=== PATIENT | female | born 1985 | race Hispanic/Latino ===

== ENCOUNTER 2025-08-30 19:33 | Emergency (ER) | payer MEDICAID ==
[~2025-08-30] VITALS: Ht 154.9 cm; Wt 72.6 kg
[2025-08-30 19:35] VITALS: BP 121/76; PULSE 73; RESP 18; TEMP 97.9
[2025-08-30] MEDS ORDERED: ISOP30DR11 OT (20:26)
--- NOTE | 2025-08-30 20:27 | ERN ---
General Chief Complaint: Earache Stated Complaint: RT EAR PAIN, BLEEDING Time Seen by MD: 19:35 Time Seen by Midlevel: 19:35 Source: patient History of Present Illness Initial Comments Presents to the ER for evaluation of right ear pain/pressure Allergies: Coded Allergies: No Known Allergies (Unverified Allergy, Unknown, 08/30/25) Past Medical History Past Medical History: No Pertinent History Past Surgical History: None ROS Dictation CONSTITUTIONAL: Negative except for HPI HEAD/FACE: Negative except for HPI EENT: Negative except for HPI RESPIRATORY: Negative except for HPI GASTROINTESTINAL/ABDOMINAL: Negative except for HPI GENITOURINARY: Negative except for HPI MUSCULOSKELETAL: Negative except for HPI INTEGUMENTARY: Negative except for HPI NEUROLOGICAL/PSYCH: Negative except for HPI HEMATOLOGIC/LYMPHATIC: Negative except for HPI All Systems Negative, Except as noted above. 13 point review of systems assessed and all negative except for above. Physical Exam Physical Exam Dictation PHYSICAL EXAM: GENERAL: alert,, awake oriented x 3 HEENT: Right cerumen impaction NECK: Supple, no JVD, trachea midline LUNGS: Clear breath sounds bilaterally. No wheezes HEART: Regular rate and rhythm. Normal S1 and S2, without murmurs ABD: Abdomen soft, nontender. Bowel sounds present EXT: No clubbing or cyanosis, NEURO: Alert and oriented to person, follows commands MDM MDM: Differential diagnosis: Cerumen impaction, otitis media, otitis externa There are no social concerns with this patient. Prescription drug management Prescriptions will include: Debrox Medical management and examination interpretation discussions were had by me with other qualified healthcare professionals as indicated for the patient's care. ED Course Vital Signs Date Time Temp Pulse Resp B/P (MAP) Pulse Ox O2 Delivery O2 Flow Rate FiO2 08/30/25 19:35 97.9 73 18 121/76 99 Room Air DX & DISP Disposition: Discharge Departure Impression: Primary Impression: Impacted cerumen, right ear Condition: Stable Scripts Isopropyl Alcohol in Glycerin (Debrox Swimmer's Ear Drop) 95 %-5 % Drops 2 DROP OT BID for 7 Days, #30 ML Prov: LIOR MARES PAC 08/30/25 Referrals: NONE (PCP) Time of Disposition: 20:25 I have reviewed the case, and I agree with, Diagnosis and Plan I performed the substantive portion of the visit. I have reviewed and personally made and approve the management plan that is documented in the note by myself or the REBECCA. I acknowledge for responsibility for the patient's management plan. LIOR MARES PAC Aug 30, 2025 20:27
--- NOTE | 2025-08-30 20:36 | NUR ---
PATIENT READY FOR DISCHARGE, NO ANSWER IN LOBBY WHEN CALLED.
--- NOTE | 2025-08-30 20:42 | NUR ---
PATIENT NOT IN LOBBY WHEN CALLED FOR DISCHARGE
== END 2025-08-30 20:43 | disposition left against medical advice (07) ==
LOC: EDH 19:33
DX: H61.21 Impacted cerumen, right ear (principal)
CPT/HCPCS: 99282